=== PATIENT | male | born 1955 | race Caucasian/White ===

== ENCOUNTER 2021-08-06 19:39 | Emergency (ER) | payer OTHER ==
[2021-08-06 22:39] LABS: Urine Blood 2+ (Negative); Urine Glucose Trace (Negative); Urine Protein 2+ (Negative)
[2021-08-06 22:46] LABS: Absolute Lymphocytes (CBC) 0.6 K/uL (0.7-4.9); Lymphocytes % 15.6 % (15.3-44.8); MPV 8.7 fL (7.6-11.3); RBC Red Blood Cell Count 3.67 M/uL (4.33-5.43)
[2021-08-06 23:04] LABS: Urine Bacteria >50 /HPF (NONE SEEN); Urine RBC <5 /HPF (NONE SEEN); Urine Urothelial Cells <5 /HPF (NONE SEEN)
[2021-08-06] MEDS ORDERED: NA CHLORIDE 0.9% 50 ML ONE (23:49)
[2021-08-06] MEDS ORDERED: CEFTRIAXONE 1000 MG/VIAL ONE (23:49)
[2021-08-07 01:05] LABS: Potassium 3.6 mmol/L (3.5-5.1)
--- NOTE | 2021-08-07 01:32 | EDPHYS ---
Physician Documentation [facility] Name: Herman Sun Age: 65 yrs Sex: Male : 1955 Arrival Date: 08/06/2021 Time: 19:41 Bed Treatment Private MD: ED Physician Wong Geller HPI: 08/06 21:01 This 65 yrs old Male presents to ER via Ambulatory with complaints of Urinary Problem, rn Cloudy Urine. 21:01 The patient presents with urinary symptoms, "cloudy urine". Onset: The symptoms/episode rn began/occurred today. Modifying factors: The symptoms are alleviated by nothing, the symptoms are aggravated by nothing. Associated signs and symptoms: Pertinent negatives: abdominal pain, dysuria, fever, hematuria, vomiting. Severity of symptoms: At their worst the symptoms were very mild, in the emergency department the symptoms are unchanged. The patient has not experienced similar symptoms in the past. The patient has not recently seen a physician. Patient came in today for cloudy urine, states "looks milky", has colon cancer s/p colectomy 3 years ago, still getting chemo, last dose 1.5 weeks ago. Is incontinent of urine since last year, uses pads, does not cath. Does not feel ill, denies fever/vomiting/chills/back pain.. Historical: - Allergies: 20:27 Marijuana/Cannabinoid; jb4 20:27 NKDA; jb4 - PMHx: 20:25 Colorectal cancer; Chronic Kidney disease; Cirrhosis of liver; Colostomy; DM; HTN; jb4 Hypothyroidism; kidney stones; - Immunization history:: Adult Immunizations up to date. - Social history:: Smoking status: Patient denies any tobacco usage or history of. - Family history:: not pertinent. ROS: 21:01 Constitutional: Negative for fever, chills, and weight loss, Eyes: Negative for injury, rn pain, redness, and discharge, Neck: Negative for injury, pain, and swelling, Cardiovascular: Negative for chest pain, palpitations, and edema, Respiratory: Negative for shortness of breath, cough, wheezing, and pleuritic chest pain, Abdomen/GI: Negative for abdominal pain, nausea, vomiting, diarrhea, and constipation, Back: Negative for injury and pain, : Negative for hematuria, + cloudy urine MS/Extremity: Negative for injury and deformity, Skin: Negative for injury, rash, and discoloration, Neuro: Negative for headache, weakness, numbness, tingling, and seizure. Exam: 21:01 Constitutional: This is a well developed, well nourished patient who is awake, alert, rn and in no acute distress. Head/Face: Normocephalic, atraumatic. Cardiovascular: Regular rate and rhythm. No pulse deficits. Respiratory: No increased work of breathing, no retractions or nasal flaring. Abdomen/GI: soft, non-tender Skin: Warm, dry MS/ Extremity: Pulses equal, no cyanosis. Neuro: Awake and alert, GCS 15 Vital Signs: 20:20 BP 153 / 57; Pulse 80; Resp 16; Temp 99.0(TE); Pulse Ox 97% on R/A; Weight 128.82 kg jb4 (R); Height 5 ft. 11 in. (180.34 cm) (R); Pain 05/29; 08/07 01:35 BP 136 / 75; Pulse 103; Resp 16; Pulse Ox 98% on R/A; jb4 08/06 20:20 Body Mass Index 39.61 (128.82 kg, 180.34 cm) jb4 MDM: 08/06 20:03 Patient medically screened. rn 08/07 01:30 Differential diagnosis: UTI, prostatitis, urethritis. Data reviewed: vital signs, rn nurses notes, lab test result(s), and as a result, I will discharge patient. Counseling: I had a detailed discussion with the patient and/or guardian regarding: the historical points, exam findings, and any diagnostic results supporting the discharge/admit diagnosis, lab results, the need for outpatient follow up, to return to the emergency department if symptoms worsen or persist or if there are any questions or concerns that arise at home. Response to treatment: the patient's symptoms have mildly improved after treatment, and as a result, I will discharge patient. Special discussion: I discussed with the patient/guardian in detail that at this point there is no indication for admission to the hospital. It is understood, however, that if the symptoms persist or worsen the patient needs to return immediately for re-evaluation. Based on the history and exam findings, there is no indication for further emergent testing or inpatient evaluation. I discussed with the patient/guardian the need to see the primary care provider for further evaluation of the symptoms. ED course: Pt with stable vitals, not septic, + UTI, had long conversation with patient and , will dc home with abx and return precautions, everyone in agreement.. 08/06 20:49 Order name: Urine Culture jb 08/06 20:49 Order name: Urine Microscopic Only; Complete Time: 23:11 jb4 08/06 20:50 Order name: CBC with Diff; Complete Time: 23:11 [facility] 08/06 20:50 Order name: Basic Metabolic Panel; Complete Time: 01:30 jb 08/06 20:50 Order name: Procalcitonin; Complete Time: 01:55 jb 08/06 22:39 Order name: Urine Dipstick-Ancillary; Complete Time: 22:43 EDPR 08/06 20:49 Order name: Urine Dipstick-Ancillary (obtain specimen); Complete Time: 22:46 [facility] 08/06 20:50 Order name: IV Start; Complete Time: 22:46 [facility] Administered Medications: 08/06 23:48 Drug: Rocephin (cefTRIAXone) 1 grams Route: IV; Rate: calculated rate; Site: left vc1 antecubital; Disposition Summary: 08/07/21 01:32 Discharge Ordered Location: Home rn Problem: new rn Symptoms: have improved rn Condition: Stable rn Diagnosis - UTI/ Urinary tract infection, site not specified rn Followup: rn - With: Private Physician - When: 2 - 3 days - Reason: Recheck today's complaints, Re-evaluation by your physician Discharge Instructions: - Discharge Summary Sheet rn - Urinary Tract Infection, Adult rn Forms: - Medication Reconciliation Form rn - Thank You Letter rn - Antibiotic pattern changer - Prescription Opioid Use rn Prescriptions: - cefpodoxime 100 mg Oral Tablet - take 2 tablets by ORAL route every 12 hours for 10 days take with food; 40 rn tablet; Refills: 0, Product Selection Permitted Signatures: Dispatcher [employer] EDWong Shah MD MD rn Bryson, James, RN RN jb4 Lora Hastings RN RN vc1 Corrections: (The following items were deleted from the chart) 20:27 20:25 Allergies: No Known Allergies; [facility]
--- NOTE | 2021-08-07 01:32 | ER ---
Nurse's Notes [facility] Name: Herman Sun Age: 65 yrs Sex: Male : 1955 Arrival Date: 08/06/2021 Time: 19:41 Bed Treatment Private MD: Diagnosis: UTI/ Urinary tract infection, site not specified Presentation: 08/06 20:20 Chief complaint: Patient states: I think he may have a UTI. He is having cloudy jb4 urination. I helped change him, and noticed that it was milky, and he has been incontinent. Coronavirus screen: At this time, the client does not indicate any symptoms associated with coronavirus-19. Ebola Screen: No symptoms or risks identified at this time. Initial Sepsis Screen: Does the patient meet any 2 criteria? No. Patient's initial sepsis screen is negative. Does the patient have a suspected source of infection? No. Patient's initial sepsis screen is negative. Risk Assessment: Do you want to hurt yourself or someone else? Patient reports no desire to harm self or others. Onset of symptoms was August 06, 2021. Transition of care: patient was not received from another setting of care. 20:20 Method Of Arrival: Ambulatory jb4 20:20 Acuity: SANJANA 3 jb4 Historical: - Allergies: 20:27 Marijuana/Cannabinoid; jb4 20:27 NKDA; jb4 - PMHx: 20:25 Colorectal cancer; Chronic Kidney disease; Cirrhosis of liver; Colostomy; DM; HTN; jb4 Hypothyroidism; kidney stones; - Immunization history:: Adult Immunizations up to date. - Social history:: Smoking status: Patient denies any tobacco usage or history of. - Family history:: not pertinent. Screenin:30 Abuse screen: Denies threats or abuse. Nutritional screening: No deficits noted. jb4 Tuberculosis screening: No symptoms or risk factors identified. Fall Risk None identified. Assessment: 21:30 General: Appears in no apparent distress. comfortable, Behavior is calm, cooperative. jb4 Pain: Denies pain. Neuro: Level of Consciousness is awake, alert, obeys commands, Oriented to person, place, time, situation. Cardiovascular: Cardiovascular: Patient's skin is warm and dry. Respiratory: Airway is patent Respiratory effort is even, unlabored, Respiratory pattern is regular, symmetrical. : Urine is cloudy. Derm: Skin is intact, Skin is pink, warm \T\ dry. 23:00 Reassessment: Patient appears in no apparent distress at this time. Patient and/or jb4 family updated on plan of care and expected duration. Pain level reassessed. Patient is alert, oriented x 3, equal unlabored respirations, skin warm/dry/pink. 08/07 01:15 Reassessment: Patient appears in no apparent distress at this time. Patient and/or jb4 family updated on plan of care and expected duration. Pain level reassessed. Patient is alert, oriented x 3, equal unlabored respirations, skin warm/dry/pink. Vital Signs: 08/06 20:20 BP 153 / 57; Pulse 80; Resp 16; Temp 99.0(TE); Pulse Ox 97% on R/A; Weight 128.82 kg jb4 (R); Height 5 ft. 11 in. (180.34 cm) (R); Pain 3/10; 08/07 01:35 BP 136 / 75; Pulse 103; Resp 16; Pulse Ox 98% on R/A; jb4 08/06 20:20 Body Mass Index 39.61 (128.82 kg, 180.34 cm) jb4 ED Course: 08/06 19:41 Patient arrived in ED. as 20:03 Wong Geller MD is Attending Physician. rn 20:25 Triage completed. jb4 20:27 Arm band placed on right wrist. jb4 21:30 Patient has correct armband on for positive identification. Bed in low position. Call jb4 light in reach. Side rails up X 1. Client placed on continuous cardiac and pulse oximetry monitoring. NIBP monitoring applied. 08/07 02:00 No provider procedures requiring assistance completed. IV discontinued, intact, jb4 bleeding controlled, No redness/swelling at site. Pressure dressing applied. Administered Medications: 08/06 23:48 Drug: Rocephin (cefTRIAXone) 1 grams Route: IV; Rate: calculated rate; Site: left vc1 antecubital; Medication: 21:30 VIS not applicable for this client. jb4 Outcome: 08/07 01:32 Discharge ordered by . rn 02:00 Discharged to home ambulatory, with family. jb4 02:00 Condition: stable 02:00 Discharge instructions given to patient, Instructed on discharge instructions, follow up and referral plans. medication usage, Demonstrated understanding of instructions, follow-up care, medications, Prescriptions given X 1. 02:01 Patient left the ED. jb4 Signatures: Dary Muhammad Roman, MD MD rn Bryson, James, RN RN jb4 Lora Hastings RN RN vc1 Corrections: (The following items were deleted from the chart) 08/06 20:27 20:25 Allergies: No Known Allergies; jb4 jb4
[2021-08-07 02:08] VITALS: TEMP 99
[2021-08-07 02:10] VITALS: BP 136/75; O2SAT 98
== END 2021-08-07 02:01 | disposition home or self-care (01) ==
LOC: ER 19:39
DX: N39.0 Urinary tract infection, site not specified (principal); E11.22 Type 2 diabetes mellitus with diabetic chronic kidney disease; I12.9 Hypertensive chronic kidney disease with stage 1 through stage 4 chronic kidney disease, or unspecified chronic kidney disease; N18.9 Chronic kidney disease, unspecified; Z88.8 Allergy status to other drugs, medicaments and biological substances; Z85.038 Personal history of other malignant neoplasm of large intestine; Z85.048 Personal history of other malignant neoplasm of rectum, rectosigmoid junction, and anus
CPT/HCPCS: 36415; 80048; 81003; 81015; 84145; 85025; 87077; 87086; 87088; 87186; 96374; 99283

== ENCOUNTER 2021-10-31 09:17 | Emergency (ER) | payer OTHER ==
[2021-10-31] MEDS ORDERED: Magnesium Sulfate 2gm IVPB 2 G/50 ML BAG IV ONE ×2 (10:06→14:35)
[2021-10-31 11:11] LABS: Albumin 2.7 g/dL (3.4-5.0); Bilirubin Total 1.1 mg/dL (0.2-1.0); Potassium 5.2 mmol/L (3.5-5.1); Protein, Total 6.1 g/dL (6.4-8.2)
[2021-10-31 11:49] LABS: Urine Blood Trace-lysed (Negative); Urine Glucose Negative (Negative); Urine Protein Negative (Negative)
--- NOTE | 2021-10-31 15:30 | EDPHYS ---
Physician Documentation [facility] Name: Herman Sun Age: 65 yrs Sex: Male : 1955 Arrival Date: 10/31/2021 Time: 09:20 Bed 7 Private MD: ED Physician Dat Hurst HPI: 10/31 09:53 This 65 yrs old Male presents to ER via Ambulatory with complaints of Abnormal Lab jmm Results. 09:53 Is a 65-year-old male with history of chronic kidney disease, liver cirrhosis, jmm colorectal cancer the presents emerged department with complaints of fatigue and abnormal magnesium level. Patient does take furosemide twice a day. states the patient is needed IV infusions of magnesium in the past. Patient denies chest pain. Patient denies palpitations. Historical: - Allergies: 09:29 NKDA; jl7 09:30 Marijuana/Cannabinoid; jl7 - Home Meds: 09:29 Chemo [Active]; jl7 09:30 tamsulosin 0.4 mg oral cap 1 cap once daily [Active]; Protonix 40 mg Oral TbEC 1 tab jl7 once daily [Active]; Glipizide Oral [Active]; levothyroxine oral [Active]; Allopurinol Oral [Active]; Lasix Oral [Active]; amiloride 5 mg oral tab [Active]; morphine 30 mg Oral TbER [Active]; gabapentin 300 mg oral cap [Active]; Hydroxyzine Oral [Active]; lactulose Oral [Active]; Myrbetriq oral [Active]; - PMHx: 09:29 chronic kidney disease; cirrhosis of liver; colorectal cancer; colostomy; DM; HTN; jl7 Hypothyroidism; Kidney stones; - Immunization history:: Client reports receiving the 2nd dose of the Covid vaccine. - Social history:: Smoking status: Patient reports the use of cigarette tobacco products, cigars. ROS: 09:53 Cardiovascular: Negative for chest pain, palpitations, and edema, Respiratory: Negative jmm for shortness of breath, cough, wheezing, and pleuritic chest pain. 09:53 Constitutional: Positive for fatigue. 09:53 All other systems are negative. Exam: 09:53 Constitutional: This is a well developed, well nourished patient who is awake, alert, jmm and in no acute distress. Head/Face: atraumatic. Eyes: EOMI, no conjunctival erythema appreciated ENT: Moist Mucus Membranes Neck: Trachea midline, Supple Chest/axilla: Normal chest wall appearance and motion. Cardiovascular: Regular rate and rhythm. No edema appreciated Respiratory: Normal respirations, no respiratory distress appreciated Abdomen/GI: Non distended Back: Normal ROM Skin: General appearance color normal MS/ Extremity: Moves all extremities, no obvious deformities appreciated, no edema noted to the lower extremities Neuro: Awake and alert Psych: Behavior is normal, Mood is normal, Patient is cooperative and pleasant 18:11 ECG was reviewed by the Attending Physician. [facility] Vital Signs: 09:28 BP 131 / 54; Pulse 83; Resp 17; Temp 98.4; Pulse Ox 96% on R/A; Weight 124.74 kg; 7 Height 5 ft. 11 in. (180.34 cm); Pain 5/10; 09:40 BP 112 / 62; Pulse 80; Resp 15; Pulse Ox 96% on R/A; vg1 10:30 BP 115 / 66; Pulse 72; Resp 12; Pulse Ox 97% on R/A; vg1 11:30 BP 123 / 59; Pulse 72; Resp 13; Pulse Ox 97% on R/A; vg1 12:59 BP 140 / 56; Pulse 76; Resp 16; Pulse Ox 99% on R/A; Pain 0/10; bm7 14:01 BP 130 / 58; Pulse 76; Resp 16; Pulse Ox 99% on R/A; bm7 14:30 BP 120 / 59; Pulse 72; Resp 16; Pulse Ox 100% on R/A; bm7 15:28 BP 117 / 56; Pulse 82; Resp 16; Pulse Ox 100% on R/A; bm7 09:28 Body Mass Index 38.35 (124.74 kg, 180.34 cm) [facility] MDM: 09:53 Patient medically screened. [facility] 15:29 Data reviewed: vital signs, nurses notes. Counseling: I had a detailed discussion with [facility] the patient and/or guardian regarding: the historical points, exam findings, and any diagnostic results supporting the discharge/admit diagnosis, the need for outpatient follow up, to return to the emergency department if symptoms worsen or persist or if there are any questions or concerns that arise at home. 10/31 09:53 Order name: [facility]; Complete Time: 11:23 [facility] 10/31 11:24 Order name: Magnesium; Complete Time: 11:44 [facility] 10/31 11:49 Order name: Urine Dipstick-Ancillary; Complete Time: 11:55 [facility] 10/31 12:19 Order name: Magnesium; Complete Time: 14:07 vg1 10/31 09:53 Order name: Saline Lock; Complete Time: 10:25 [facility] 10/31 10:03 Order name: EKG - Nurse/Tech; Complete Time: 10:40 [facility] 10/31 10:40 Order name: Labs - recollect needed: recollect green top/ hemolyzed; Complete Time: eb 10:45 10/31 11:24 Order name: Urine Dipstick-Ancillary (obtain specimen); Complete Time: 11:51 [facility] EC:11 Rate is 71 beats/min. Rhythm is regular. QT interval is prolonged. No ST changes noted. [facility] Reviewed by me. Administered Medications: 10:20 Drug: Magnesium Sulfate 2 grams Route: IVPB; Infused Over: 2 hrs; Site: left wrist; vg1 12:17 Follow up: IV Status: Completed infusion; IV Intake: 50ml vg1 14:30 Drug: Magnesium Sulfate 2 grams Route: IVPB; Infused Over: 2 hrs; Site: left hand; bm7 15:28 Follow up: IV Status: Completed infusion bm7 Disposition: 16:45 Attestation: The patient's history, exam findings, diagnostics, and a summary of any [facility] interventions or procedures was reviewed in detail with Giovanni SÁNCHEZ. Disposition Summary: 10/31/21 15:30 Discharge Ordered Location: Home [facility] Condition: Stable [facility] Diagnosis - Hypomagnesemia [facility] Followup: [facility] - With: Private Physician - When: 2 - 3 days - Reason: Recheck today's complaints, Continuance of care, Re-evaluation by your physician Discharge Instructions: - Discharge Summary Sheet [facility] - Hypomagnesemia [facility] Forms: - Medication Reconciliation Form [facility] - Thank You Letter [facility] - Antibiotic Education [facility] - Prescription Opioid Use [facility] Prescriptions: - Macrobid 100 mg Oral Capsule - take 1 capsule by ORAL route every 12 hours for 7 days; 14 capsule; Refills: 0, jmm Product Selection Permitted Signatures: Dispatcher [employer] Giovanni Burrows PA PA jmm Leal, Jahala RN RN jl7 Irina Srinivasan Victoria, DEV RN vg1 Anu Chen, RN RN bm7 Dat Hurst MD MD [id number]
--- NOTE | 2021-10-31 15:30 | ER ---
Nurse's Notes [facility] Name: Herman Sun Age: 65 yrs Sex: Male : 1955 Arrival Date: 10/31/2021 Time: 09:20 Bed 7 Private MD: Diagnosis: Hypomagnesemia Presentation: 10/31 09:28 Chief complaint: Patient states: Labs drawn on Wednesday, reported Mag. level of 0.7. jl Coronavirus screen: At this time, the client does not indicate any symptoms associated with coronavirus-19. Ebola Screen: No symptoms or risks identified at this time. Initial Sepsis Screen: Does the patient meet any 2 criteria? No. Patient's initial sepsis screen is negative. Does the patient have a suspected source of infection? No. Patient's initial sepsis screen is negative. Risk Assessment: Do you want to hurt yourself or someone else? Patient reports no desire to harm self or others. Onset of symptoms is unknown. 09:28 Method Of Arrival: Ambulatory [facility] 09:28 Acuity: SANJANA 3 jl7 Triage Assessment: 09:29 General: Appears in no apparent distress. uncomfortable, Behavior is calm, cooperative, jl7 appropriate for age. Pain: Complains of pain in back/sacral Pain currently is 5 out of 10 on a pain scale. Historical: - Allergies: : NKDA; jl 09:30 Marijuana/Cannabinoid; jl7 - Home Meds: 09: Chemo [Active]; jl 09:30 tamsulosin 0.4 mg oral cap 1 cap once daily [Active]; Protonix 40 mg Oral TbEC 1 tab jl7 once daily [Active]; Glipizide Oral [Active]; levothyroxine oral [Active]; Allopurinol Oral [Active]; Lasix Oral [Active]; amiloride 5 mg oral tab [Active]; morphine 30 mg Oral TbER [Active]; gabapentin 300 mg oral cap [Active]; Hydroxyzine Oral [Active]; lactulose Oral [Active]; Myrbetriq oral [Active]; - PMHx: 09:29 chronic kidney disease; cirrhosis of liver; colorectal cancer; colostomy; DM; HTN; jl7 Hypothyroidism; Kidney stones; - Immunization history:: Client reports receiving the 2nd dose of the Covid vaccine. - Social history:: Smoking status: Patient reports the use of cigarette tobacco products, cigars. Screenin:40 Abuse screen: Denies threats or abuse. Nutritional screening: No deficits noted. vg1 Tuberculosis screening: No symptoms or risk factors identified. Fall Risk No fall in past 12 months (0 pts). No secondary diagnosis (0 pts). IV access (20 points). Ambulatory Aid- None/Bed Rest/Nurse Assist (0 pts). Gait- Normal/Bed Rest/Wheelchair (0 pts) Mental Status- Oriented to own ability (0 pts). Total Webb Fall Scale indicates No Risk (0-24 pts). Assessment: 09:40 General: Appears in no apparent distress. uncomfortable, Behavior is calm, cooperative. vg1 Pain: Complains of pain in coccyx and gluteal cleft Pain currently is 5 out of 10 on a pain scale. Quality of pain is described as pressure, tender, Is chronic. Neuro: Level of Consciousness is awake, alert, obeys commands, Oriented to person, place, time, situation. Cardiovascular: Patient's skin is warm and dry. Chest pain is denied. Respiratory: Airway is patent Respiratory effort is even, unlabored, Denies cough, shortness of breath. GI: No signs and/or symptoms were reported involving the gastrointestinal system. Abdomen is round non-distended, obese, Colostomy site is clean and dry. is intact. : No signs and/or symptoms were reported regarding the genitourinary system. EENT: No signs and/or symptoms were reported regarding the EENT system. Derm: Skin is pink, warm \T\ dry. Musculoskeletal: Circulation, motion, and sensation intact. 10:45 Reassessment: Patient appears in no apparent distress at this time. No changes from vg1 previously documented assessment. Patient and/or family updated on plan of care and expected duration. Pain level reassessed. Patient is alert, oriented x 3, equal unlabored respirations, skin warm/dry/pink. 11:45 Reassessment: Patient appears in no apparent distress at this time. No changes from vg1 previously documented assessment. Patient and/or family updated on plan of care and expected duration. Pain level reassessed. Patient is alert, oriented x 3, equal unlabored respirations, skin warm/dry/pink. 13:35 Reassessment: Patient and/or family updated on plan of care and expected duration. Pain bm7 level reassessed. Patient is alert, oriented x 3, equal unlabored respirations, skin warm/dry/pink. Vital Signs: 09:28 BP 131 / 54; Pulse 83; Resp 17; Temp 98.4; Pulse Ox 96% on R/A; Weight 124.74 kg; jl7 Height 5 ft. 11 in. (180.34 cm); Pain 5/10; 09:40 BP 112 / 62; Pulse 80; Resp 15; Pulse Ox 96% on R/A; vg1 10:30 BP 115 / 66; Pulse 72; Resp 12; Pulse Ox 97% on R/A; vg1 11:30 BP 123 / 59; Pulse 72; Resp 13; Pulse Ox 97% on R/A; vg1 12:59 BP 140 / 56; Pulse 76; Resp 16; Pulse Ox 99% on R/A; Pain 0/10; bm7 14:01 BP 130 / 58; Pulse 76; Resp 16; Pulse Ox 99% on R/A; bm7 14:30 BP 120 / 59; Pulse 72; Resp 16; Pulse Ox 100% on R/A; bm7 15:28 BP 117 / 56; Pulse 82; Resp 16; Pulse Ox 100% on R/A; bm7 09:28 Body Mass Index 38.35 (124.74 kg, 180.34 cm) jl7 ED Course: 09:20 Patient arrived in ED. rg4 09:25 Giovanni Mansfield PA is PHCP. jmm 09:25 Dat Hurst MD is Attending Physician. jmm 09:29 Triage completed. jl7 09:29 Arm band placed on right wrist. jl7 09:37 Mela Colon, RN is Primary Nurse. vg1 09:40 Patient has correct armband on for positive identification. Bed in low position. Side vg1 rails up X 1. Adult w/ patient. 09:40 Client placed on continuous cardiac and pulse oximetry monitoring. NIBP monitoring vg1 applied. 10:12 Initial lab(s) drawn, by me, sent to lab. Inserted saline lock: 22 gauge in left wrist, vg1 using aseptic technique. Blood collected. 12:59 Repositioned patient. bm7 12:59 Lab(s) recollected, by me, sent to lab. bm7 15:46 No provider procedures requiring assistance completed. IV discontinued, intact, bm7 bleeding controlled, No redness/swelling at site. Pressure dressing applied. Administered Medications: 10:20 Drug: Magnesium Sulfate 2 grams Route: IVPB; Infused Over: 2 hrs; Site: left wrist; vg1 12:17 Follow up: IV Status: Completed infusion; IV Intake: 50ml vg1 14:30 Drug: Magnesium Sulfate 2 grams Route: IVPB; Infused Over: 2 hrs; Site: left hand; bm7 15:28 Follow up: IV Status: Completed infusion bm7 Medication: 09:40 VIS not applicable for this client. vg1 Intake: 12:17 IV: 50ml; Total: 50ml. vg1 Outcome: 15:30 Discharge ordered by . shalonda 15:46 Discharged to home ambulatory, with family. 7 15:46 Condition: improved 15:46 Discharge instructions given to patient, family, Instructed on discharge instructions, follow up and referral plans. Demonstrated understanding of instructions, follow-up care. 15:56 Patient left the ED. 7 Signatures: Giovanni Mansfield PA PA jmm Garcia, Rubi rg4 Jeremy Heredia RN RN jl7 Mela Cloon, RN RN vg1 Anu Chen, RN RN bm7
[2021-10-31 16:24] VITALS: TEMP 98.4
[2021-10-31 17:00] VITALS: O2SAT 100
[2021-10-31 17:02] VITALS: BP 117/56
== END 2021-10-31 15:56 | disposition home or self-care (01) ==
LOC: ER 09:17
DX: E83.42 Hypomagnesemia (principal); C18.9 Malignant neoplasm of colon, unspecified; E11.22 Type 2 diabetes mellitus with diabetic chronic kidney disease; I12.9 Hypertensive chronic kidney disease with stage 1 through stage 4 chronic kidney disease, or unspecified chronic kidney disease; N18.9 Chronic kidney disease, unspecified; F17.290 Nicotine dependence, other tobacco product, uncomplicated; Z91.048 Other nonmedicinal substance allergy status
CPT/HCPCS: 36415; 83735 ×2; 81003; 80053; 99284; J3475 ×2; 93005

== ENCOUNTER 2021-11-11 09:21 | Emergency (ER) | payer OTHER ==
[2021-11-11 10:21] LABS: Absolute Lymphocytes (CBC) 0.4 K/uL (0.7-4.9); Hematocrit 35.9 % (39.6-49.0); Lymphocytes % 8.5 % (15.3-44.8); MCV 97.8 fL (80-100); MPV 9.5 fL (7.6-11.3); RBC Red Blood Cell Count 3.67 M/uL (4.33-5.43)
[2021-11-11 10:28] LABS: SARS-CoV-2 Antigen Rapid Res Negative (Negative)
[2021-11-11 10:32] LABS: Albumin 2.7 g/dL (3.4-5.0); Bilirubin Total 0.9 mg/dL (0.2-1.0); Potassium 3.9 mmol/L (3.5-5.1); Protein, Total 6.2 g/dL (6.4-8.2)
[2021-11-11 10:34] LABS: Magnesium 0.9 mg/dL (1.8-2.4)
[2021-11-11] MEDS ORDERED: Magnesium Sulfate 2gm IVPB 2 G/50 ML BAG IV ONE ×2 (10:47→14:19)
--- NOTE | 2021-11-11 10:56 | ER ---
Nurse's Notes [facility] Name: Herman Sun Age: 65 yrs Sex: Male : 1955 Arrival Date: 11/11/2021 Time: 09:27 Bed 3 Private MD: Diagnosis: Hypomagnesemia;Weakness Presentation: 11/11 09:36 Chief complaint: Patient states: chemo every 14 days, pt is needing magnesium drip 5 every week. Pt is extremely fatigued per . ambulates well independently, speech is clear. Pt was here 2 weeks ado dx with UTI, pt self caths - urine is still very cloudy even after finishing abx. Coronavirus screen: Vaccine status: Patient reports receiving the 2nd dose of the covid vaccine. Client denies travel out of the [place] in the last 14 days. Ebola Screen: Patient negative for fever greater than or equal to 101.5 degrees Fahrenheit, and additional compatible Ebola Virus Disease symptoms Patient denies exposure to infectious person. Patient denies travel to an Ebola-affected area in the 21 days before illness onset. No acute neurological deficit is noted. Pre-hospital glucose is not applicable to this patient. Initial Sepsis Screen: Does the patient meet any 2 criteria? No. Patient's initial sepsis screen is negative. Does the patient have a suspected source of infection? No. Patient's initial sepsis screen is negative. Risk Assessment: Do you want to hurt yourself or someone else? Patient reports no desire to harm self or others. Onset of symptoms was October 2021. 09:36 Method Of Arrival: Ambulatory [facility] 09:36 Acuity: SANJANA 2 [facility] Triage Assessment: 09:41 General: Appears in no apparent distress. uncomfortable, obese, well groomed, Behavior [facility] is calm, cooperative, appropriate for age. Pain: Complains of pain in mouth. Neuro: Reports weakness weakness due to low magnesium from chemo therapy treatment . Historical: - Allergies: 09:40 Marijuana/Cannabinoid; 5 09:40 NKDA; [facility] - Home Meds: 09:40 tamsulosin 0.4 mg Oral cap 1 cap once daily [Active]; levothyroxine oral [Active]; 5 Protonix 40 mg Oral TbEC 1 tab once daily [Active]; Allopurinol Oral [Active]; amiloride 5 mg Oral tab [Active]; chemo [Active]; gabapentin 300 mg Oral cap [Active]; Glipizide Oral [Active]; Hydroxyzine Oral [Active]; Lactulose Oral [Active]; Lasix Oral [Active]; morphine 30 mg Oral TbER [Active]; Myrbetriq Oral [Active]; - PMHx: 09:40 chronic kidney disease; cirrhosis of liver; colorectal cancer; colostomy; DM; HTN; jh5 Hypothyroidism; Kidney stones; - Immunization history:: Adult Immunizations up to date. - Social history:: Smoking status: Patient uses daily cigar. Screenin:09 Abuse screen: Denies threats or abuse. Denies injuries from another. Nutritional ph screening: No deficits noted. Tuberculosis screening: No symptoms or risk factors identified. Fall Risk None identified. Assessment: 10:34 Reassessment: Dr. Arzate notified of critical magnesium, 0.9. ss 10:50 Reassessment: Patient appears in no apparent distress at this time. No changes from tw2 previously documented assessment. Patient and/or family updated on plan of care and expected duration. Pain level reassessed. Patient is alert, oriented x 3, equal unlabored respirations, skin warm/dry/pink. 11:35 Reassessment: Patient appears in no apparent distress at this time. No changes from tw2 previously documented assessment. Patient and/or family updated on plan of care and expected duration. Pain level reassessed. Patient is alert, oriented x 3, equal unlabored respirations, skin warm/dry/pink. 12:27 Reassessment: Patient appears in no apparent distress at this time. No changes from tw2 previously documented assessment. Patient and/or family updated on plan of care and expected duration. Pain level reassessed. Patient is alert, oriented x 3, equal unlabored respirations, skin warm/dry/pink. 14:06 Reassessment: Patient appears in no apparent distress at this time. No changes from tw2 previously documented assessment. Patient and/or family updated on plan of care and expected duration. Pain level reassessed. Patient is alert, oriented x 3, equal unlabored respirations, skin warm/dry/pink. 14:06 Reassessment: Patient appears in no apparent distress at this time. No changes from tw2 previously documented assessment. Patient and/or family updated on plan of care and expected duration. Pain level reassessed. Patient is alert, oriented x 3, equal unlabored respirations, skin warm/dry/pink. 15:19 Reassessment: Patient appears in no apparent distress at this time. No changes from tw2 previously documented assessment. Patient and/or family updated on plan of care and expected duration. Pain level reassessed. Patient is alert, oriented x 3, equal unlabored respirations, skin warm/dry/pink. 16:47 Reassessment: Patient appears in no apparent distress at this time. Patient and/or ph family updated on plan of care and expected duration. Pain level reassessed. Patient is alert, oriented x 3, equal unlabored respirations, skin warm/dry/pink. Pt d/c homme. Vital Signs: 09:36 BP 124 / 63; Pulse 84; Resp 18; Temp 98.7; Pulse Ox 96% ; Weight 123.38 kg; Height 5 5 ft. 11 in. (180.34 cm); Pain 8/10; 10:48 BP 126 / 67; Pulse 75; Resp 17; Pulse Ox 93% on R/A; tw2 11:35 BP 128 / 42; Pulse 84; Resp 17; Pulse Ox 99% on R/A; tw2 12:27 BP 128 / 64; Pulse 75; Resp 15; Pulse Ox 96% on R/A; tw2 14:06 BP 126 / 65; Pulse 76; Resp 14; Pulse Ox 95% on R/A; tw2 15:19 BP 119 / 61; Pulse 81; Resp 14; Pulse Ox 97% on R/A; tw2 16:48 BP 117 / 68; Pulse 78; Resp 18; Temp 98.2; Pulse Ox 98% on R/A; ph 09:36 Body Mass Index 37.94 (123.38 kg, 180.34 cm) 5 ED Course: 09:27 Patient arrived in ED. rg4 09:34 Mikhail Arzate MD is Attending Physician. kdr 09:40 Triage completed. jh5 09:52 Peyton Jarrell, DEV is Primary Nurse. ph 09:59 Arm band placed on. tw2 10:04 Inserted saline lock: 20 gauge in left hand, using aseptic technique. ph 10:08 SARS RAPID Sent. kc6 10:08 CBC with Diff Sent. kc6 10:08 Magnesium Sent. kc6 10:08 Comprehensive Metabolic Panel Sent. kc6 10:09 Patient has correct armband on for positive identification. Bed in low position. Call ph light in reach. Side rails up X 1. desk monitor on. Pulse ox on. NIBP on. Door closed. Visitors limited. Warm blanket given. 10:55 Dalton Grande DO is Referral Physician. kdr 13:00 Magnesium Sent. tw2 15:58 Awaiting: completion of IV fluids PRIOR to discharge. tw2 16:48 No provider procedures requiring assistance completed. IV discontinued, intact, ph bleeding controlled, No redness/swelling at site. Pressure dressing applied. Administered Medications: 10:48 Drug: Magnesium Sulfate 2 grams Route: IVPB; Infused Over: 2 hrs; Site: left hand; tw2 11:43 Follow up: Response: No adverse reaction; IV Status: Completed infusion; IV Intake: [id number] 14:10 Drug: Magnesium Sulfate 2 grams Route: IVPB; Infused Over: 2 hrs; Site: left hand; tw2 15:30 Follow up: IV Status: Completed infusion; IV Intake: 100ml ; per Dr. Arzate can run tw2 over 1 hr 15:50 Drug: Rocephin - (cefTRIAXone) 1 grams Route: IVPB; Infused Over: 30 mins; Site: left ph forearm; 16:20 Follow up: Response: No adverse reaction; IV Status: Completed infusion ph Medication: 10:09 VIS not applicable for this client. ph Intake: 11:43 IV: 50ml; Total: 50ml. tw2 15:30 IV: 100ml; Total: 150ml. tw2 Outcome: 10:56 Discharge ordered by . kdr 15:47 Discharge ordered by . kdr 16:48 Discharged to home ambulatory, with significant other. ph 16:48 Condition: good 16:48 Discharge instructions given to patient, significant other, Instructed on discharge instructions, follow up and referral plans. medication usage, Demonstrated understanding of instructions, follow-up care, medications, Prescriptions given X 1. 16:48 Patient left the ED. ph Signatures: Mikhail Arzate MD MD kdr Griselda Huertas RN RN ss Hall, Patricia, RN RN ph Mila Basilio RN RN 2 Luisa Colon 4 Kellie Pace RN RN 5 Zohreh Yoo kc6 Corrections: (The following items were deleted from the chart) 09:42 09:36 Chief complaint: Patient states: chemo every 14 days, pt is needing magnesium jh5 drip every week. Pt is extremely fatigued per . ambulates well independently, has coffee cup with him jh5 12:28 12:27 BP 128 / 64; Pulse 75bpm; Resp 11bpm; Pulse Ox 96% RA; tw2 tw2
--- NOTE | 2021-11-11 10:57 | EDPHYS ---
Physician Documentation [facility] Name: Herman Sun Age: 65 yrs Sex: Male : 1955 Arrival Date: 11/11/2021 Time: 09:27 Bed 3 Private MD: ED Physician Mikhail Arzate HPI: 11/11 11:09 This 65 yrs old Male presents to ER via Ambulatory with complaints of Weakness. kdr 11:09 The patient presents to the emergency department with weakness of the entire body, kdr generalized weakness. Onset: The symptoms/episode began/occurred gradually, 1 week(s) ago. Context: occurred at home, occurred while the patient was at rest. Associated signs and symptoms: The patient has no apparent associated signs or symptoms. Severity of symptoms: At their worst the symptoms were mild moderate just prior to arrival, in the emergency department the symptoms are unchanged. Patient's baseline: Neuro: alert and fully oriented, Motor: no deficits, Ambulation: walks without assistance, Speech: normal, The patient has a previous history of hypomagnesemia secondary to his radiation treatments for colon cancer. Current symptoms: Generally weak, diffusely. The patient has experienced similar episodes in the past, multiple times. The patient has not recently seen a physician. Historical: - Allergies: 09:40 Marijuana/Cannabinoid; 5 09:40 NKDA; jh5 - Home Meds: 09:40 tamsulosin 0.4 mg Oral cap 1 cap once daily [Active]; levothyroxine oral [Active]; jh5 Protonix 40 mg Oral TbEC 1 tab once daily [Active]; Allopurinol Oral [Active]; amiloride 5 mg Oral tab [Active]; chemo [Active]; gabapentin 300 mg Oral cap [Active]; Glipizide Oral [Active]; Hydroxyzine Oral [Active]; Lactulose Oral [Active]; Lasix Oral [Active]; morphine 30 mg Oral TbER [Active]; Myrbetriq Oral [Active]; - PMHx: 09:40 chronic kidney disease; cirrhosis of liver; colorectal cancer; colostomy; DM; HTN; jh5 Hypothyroidism; Kidney stones; - Immunization history:: Adult Immunizations up to date. - Social history:: Smoking status: Patient uses daily cigar. ROS: 11:09 Constitutional: Negative for fever, chills, and weight loss, Eyes: Negative for injury, kdr pain, redness, and discharge, ENT: Negative for injury, pain, and discharge, Neck: Negative for injury, pain, and swelling, Cardiovascular: Negative for chest pain, palpitations, and edema, Respiratory: Negative for shortness of breath, cough, wheezing, and pleuritic chest pain, Abdomen/GI: Negative for abdominal pain, nausea, vomiting, diarrhea, and constipation, Back: Negative for injury and pain, : Negative for injury, bleeding, discharge, and swelling, MS/Extremity: Negative for injury and deformity, Skin: Negative for injury, rash, and discoloration, Psych: Negative for depression, anxiety, suicide ideation, homicidal ideation, and hallucinations, Allergy/Immunology: Negative for hives, rash, and allergies, Endocrine: Negative for neck swelling, polydipsia, polyuria, polyphagia, and marked weight changes, Hematologic/Lymphatic: Negative for swollen nodes, abnormal bleeding, and unusual bruising. 11:09 Neuro: Positive for gait disturbance, weakness, Negative for altered mental status, dizziness, gait disturbance, headache, loss of consciousness, seizure activity, speech changes, syncope, near syncope, tinnitus, tremor, visual changes. Exam: 11:09 Constitutional: This is a well developed, well nourished patient who is awake, alert, kdr and in no acute distress. Head/Face: Normocephalic, atraumatic. Eyes: Pupils equal round and reactive to light, extra-ocular motions intact. Lids and lashes normal. Conjunctiva and sclera are non-icteric and not injected. Cornea within normal limits. Periorbital areas with no swelling, redness, or edema. Neck: Trachea midline, no thyromegaly or masses palpated, and no cervical lymphadenopathy. Supple, full range of motion without nuchal rigidity, or vertebral point tenderness. No Meningismus. Chest/axilla: Normal chest wall appearance and motion. Nontender with no deformity. No lesions are appreciated. Cardiovascular: Regular rate and rhythm with a normal S1 and S2. No gallops, murmurs, or rubs. Normal PMI, no JVD. No pulse deficits. Respiratory: Lungs have equal breath sounds bilaterally, clear to auscultation and percussion. No rales, rhonchi or wheezes noted. No increased work of breathing, no retractions or nasal flaring. Abdomen/GI: Soft, non-tender, with normal bowel sounds. No distension or tympany. No guarding or rebound. No evidence of tenderness throughout. 11:09 Abdomen/GI: Inspection: obese The patient has a colostomy bag. Vital Signs: 09:36 BP 124 / 63; Pulse 84; Resp 18; Temp 98.7; Pulse Ox 96% ; Weight 123.38 kg; Height 5 jh5 ft. 11 in. (180.34 cm); Pain 8/10; 10:48 BP 126 / 67; Pulse 75; Resp 17; Pulse Ox 93% on R/A; tw2 11:35 BP 128 / 42; Pulse 84; Resp 17; Pulse Ox 99% on R/A; tw2 12:27 BP 128 / 64; Pulse 75; Resp 15; Pulse Ox 96% on R/A; tw2 14:06 BP 126 / 65; Pulse 76; Resp 14; Pulse Ox 95% on R/A; tw2 15:19 BP 119 / 61; Pulse 81; Resp 14; Pulse Ox 97% on R/A; tw2 16:48 BP 117 / 68; Pulse 78; Resp 18; Temp 98.2; Pulse Ox 98% on R/A; ph 09:36 Body Mass Index 37.94 (123.38 kg, 180.34 cm) 5 MDM: 10:56 Patient medically screened. kdr 11:09 Data reviewed: vital signs, nurses notes, lab test result(s), radiologic studies. kdr Counseling: I had a detailed discussion with the patient and/or guardian regarding: the historical points, exam findings, and any diagnostic results supporting the discharge/admit diagnosis, lab results, radiology results, the need for outpatient follow up. 15:46 ED course: Patient has continued to improve markedly with the interventions given. This kdr is a process that he has been through many times previously. He is responding well and should be dischargeable shortly. 11/11 09:50 Order name: Urine Culture kdr 11/11 09:50 Order name: Comprehensive Metabolic Panel; Complete Time: 10:42 kdr 11/11 09:50 Order name: Magnesium; Complete Time: 10:42 kdr 11/11 09:50 Order name: CBC with Diff; Complete Time: 10:42 kdr 11/11 09:54 Order name: SARS RAPID; Complete Time: 10:42 ph 11/11 11:32 Order name: Urine Dipstick-Ancillary; Complete Time: 15:42 EDMS 11/11 09:50 Order name: Urine Dipstick-Ancillary (obtain specimen); Complete Time: 11:34 kdr 11/11 12:36 Order name: Magnesium; Complete Time: 15:42 tw2 11/11 15:38 Order name: Magnesium; Complete Time: 16:22 ss Administered Medications: 10:48 Drug: Magnesium Sulfate 2 grams Route: IVPB; Infused Over: 2 hrs; Site: left hand; tw2 11:43 Follow up: Response: No adverse reaction; IV Status: Completed infusion; IV Intake: [id number] 14:10 Drug: Magnesium Sulfate 2 grams Route: IVPB; Infused Over: 2 hrs; Site: left hand; tw2 15:30 Follow up: IV Status: Completed infusion; IV Intake: 100ml ; per Dr. Arzate can run tw2 over 1 hr 15:50 Drug: Rocephin - (cefTRIAXone) 1 grams Route: IVPB; Infused Over: 30 mins; Site: left ph forearm; 16:20 Follow up: Response: No adverse reaction; IV Status: Completed infusion ph Disposition Summary: 11/11/21 15:47 Discharge Ordered Location: Home(11/11/21 15:47) kdr Problem: an acute exacerbation(11/11/21 15:47) kdr Symptoms: have improved(11/11/21 15:47) kdr Condition: Stable(11/11/21 15:47) kdr Diagnosis - Hypomagnesemia kdr - Weakness kdr Followup: kdr - With: Private Physician - When: 2 - 3 days - Reason: If symptoms return, Further diagnostic work-up, Recheck today's complaints, Continuance of care, Re-evaluation by your physician Discharge Instructions: - Discharge Summary Sheet kdr - Hypomagnesemia kdr - Weakness, [id number] kdr - Urinary Tract Infection, Adult, [id number] kdr Forms: - Medication Reconciliation Form kdr - Thank You Letter kdr Prescriptions: - Macrobid 100 mg Oral Capsule - take 1 capsule by ORAL route every 12 hours for 10 days; 20 capsule; Refills: kdr 0, Product Selection Permitted Signatures: Dispatcher [employer] Mikhail Preez MD MD kdr Peyton Jarrell RN RN ph Mila Basilio RN RN tw2 Kellie Pace, RN RN jh5 Corrections: (The following items were deleted from the chart) 10: 10:56 Home kdr kdr 10:56 an ongoing problem kdr kdr 10:56 are unchanged kdr kdr 10:56 Stable kdr kdr 10:56 Chest pain, unspecified kdr kdr : 10:56 Shortness of breath kdr kdr
[2021-11-11 11:32] LABS: Urine Blood Trace-intact (Negative); Urine Glucose Negative (Negative); Urine Protein Negative (Negative)
[2021-11-11] MEDS ORDERED: CEFTRIAXONE 1000 MG/VIAL ONE (15:54)
[2021-11-11] MEDS ORDERED: NA CHLORIDE 0.9% 100 ML ONE (15:54)
[2021-11-11 17:26] VITALS: BP 117/68; TEMP 98.2; O2SAT 98
== END 2021-11-11 16:48 | disposition home or self-care (01) ==
LOC: ER 09:21
DX: N39.0 Urinary tract infection, site not specified (principal); E83.42 Hypomagnesemia; E11.22 Type 2 diabetes mellitus with diabetic chronic kidney disease; I12.9 Hypertensive chronic kidney disease with stage 1 through stage 4 chronic kidney disease, or unspecified chronic kidney disease; N18.9 Chronic kidney disease, unspecified; Z85.038 Personal history of other malignant neoplasm of large intestine; Z85.048 Personal history of other malignant neoplasm of rectum, rectosigmoid junction, and anus; Z87.442 Personal history of urinary calculi; Z88.8 Allergy status to other drugs, medicaments and biological substances; Z20.822 Contact with and (suspected) exposure to COVID-19
CPT/HCPCS: 87088; 85025; 87086; 36415; 83735 ×3; 81003; 80053; 87811; J3475 ×2

== ENCOUNTER 2021-12-02 09:39 | Emergency (ER) | payer OTHER ==
[2021-12-02] MEDS ORDERED: Magnesium Sulfate 2gm IVPB 2 G/50 ML BAG IV ONE (13:03)
[2021-12-02 13:42] LABS: Potassium 3.9 mmol/L (3.5-5.1)
[2021-12-02 13:45] LABS: Magnesium 1.3 mg/dL (1.8-2.4)
[2021-12-02] MEDS ORDERED: CEFTRIAXONE 1000 MG/VIAL ONE (14:28)
--- NOTE | 2021-12-02 14:31 | EDPHYS ---
Physician Documentation [facility] Name: Herman Sun Age: 65 yrs Sex: Male : 1955 Arrival Date: 12/02/2021 Time: 09:41 Bed 27 Private MD: ED Physician Lenny Lima HPI: 12/02 10:43 This 65 yrs old Male presents to ER via Ambulatory with complaints of General Weakness. jmm 10:43 65-year-old male with a history of chronic kidney disease, cirrhosis of liver, jmm colorectal cancer presents the ED with complaints of fatigue, right ear pain. Patient is currently taking Augmentin for otitis media. Denies abdominal pain, shortness of breath, chest pain, cough. Family/ states patient normally has hypomagnesemia which he attributes to his weakness.. Historical: - Allergies: 10:27 Marijuana/Cannabinoid; jh5 10:27 NKDA; jh5 - Home Meds: 10:27 Magnesium Oxide Oral 2400 mg daily [Active]; tamsulosin 0.4 mg Oral cap 1 cap once jh5 daily [Active]; Protonix 40 mg Oral TbEC 1 tab once daily [Active]; Glipizide Oral [Active]; levothyroxine oral [Active]; Allopurinol Oral [Active]; amiloride 5 mg Oral tab [Active]; Lasix Oral [Active]; morphine 30 mg Oral TbER [Active]; gabapentin 300 mg Oral cap [Active]; Hydroxyzine Oral [Active]; Lactulose Oral [Active]; Myrbetriq Oral [Active]; Jemperli intravenous [Active]; chemo [Active]; - PMHx: 10:27 chronic kidney disease; cirrhosis of liver; colorectal cancer; colostomy; DM; HTN; jh5 Hypothyroidism; Kidney stones; recurrent uti; - Immunization history:: Client reports receiving the 2nd dose of the Covid vaccine. - Social history:: Smoking status: Patient reports the use of cigarette tobacco products, cigars. ROS: 10:43 Constitutional: Positive for fatigue. jmm 10:43 ENT: Positive for ear pain. 10:43 Respiratory: Positive for Negative for shortness of breath. 10:43 Abdomen/GI: Negative for abdominal pain, vomiting. 10:43 All other systems are negative. Exam: 10:43 Constitutional: This is a well developed, well nourished patient who is awake, alert, jmm and in no acute distress. Head/Face: atraumatic. 10:43 Chest/axilla: Normal chest wall appearance and motion. Cardiovascular: Regular rate and rhythm. No edema appreciated Respiratory: Normal respirations, no respiratory distress appreciated 10:43 Back: Normal ROM Skin: General appearance color normal MS/ Extremity: Moves all extremities, no obvious deformities appreciated, no edema noted to the lower extremities Neuro: Awake and alert Psych: Behavior is normal, Mood is normal, Patient is cooperative and pleasant 10:43 Eyes: Sclera: icterus, is present. 10:43 Abdomen/GI: Inspection: obese Palpation: soft, nontender, in all quadrants. 10:43 ENT: TM's: erythema, that is moderate, on the right. [facility] Vital Signs: 10:33 BP 125 / 70; Pulse 103; Resp 17; Temp 98.4; Pulse Ox 95% ; Weight 123.38 kg; Height 5 jl7 ft. 11 in. (180.34 cm); 13:50 BP 122 / 66; Pulse 81; Pulse Ox 99% on R/A; ap3 10:33 Body Mass Index 37.94 (123.38 kg, 180.34 cm) jl7 MDM: 11:53 Patient medically screened. [facility] 14:29 Data reviewed: vital signs, nurses notes. Counseling: I had a detailed discussion with [facility] the patient and/or guardian regarding: the historical points, exam findings, and any diagnostic results supporting the discharge/admit diagnosis, lab results, the need for outpatient follow up, to return to the emergency department if symptoms worsen or persist or if there are any questions or concerns that arise at home. ED course: States feeling much better after IV magnesium. Will switch antibiotic to cefdinir. Patient states he has been on Augmentin without relief of his right ear pain.. 12/02 11:25 Order name: Magnesium; Complete Time: 13:52 snw 12/02 12:35 Order name: Basic Metabolic Panel; Complete Time: 13:52 EDMS 12/02 10:43 Order name: Labs collected and sent; Complete Time: 12:15 snw 12/02 10:43 Order name: O2 Sat Monitoring; Complete Time: 12:44 snw Administered Medications: 13:11 Drug: Magnesium Sulfate 2 grams Route: IVPB; Infused Over: 2 hrs; Site: left [facility] antecubital; 14:17 Follow up: IV Status: Completed infusion ap3 14:30 Drug: Rocephin (cefTRIAXone) 1 grams Route: IV; Rate: calculated rate; Site: left [facility] ante[facility]ubital; Disposition Summary: 12/02/21 14:30 Discharge Ordered Location: Home [facility] Condition: Stable jm Diagnosis - Acute serous otitis media, right ear [facility] Followup: jmm - With: Private Physician - When: 2 - 3 days - Reason: Recheck today's complaints, Continuance of care, Re-evaluation by your physician Discharge Instructions: - Discharge Summary Sheet [facility] - Otitis Media, Adult [facility] Forms: - Medication Reconciliation Form [facility] - Thank You Letter [facility] - Antibiotic Education [facility] - Prescription Opioid Use [facility] Prescriptions: - cefdinir 300 mg Oral capsule - take 1 capsule by ORAL route every 12 hours; 20 capsule; Refills: 0, Product [facility] Selection Permitted Signatures: Dispatcher [employer] Dary Christianson, SEAN-C CUSTOMER ENGINEERING SPECIALIST-Giovanni Saez PA PA jmm Jeremy Heredia, RN RN jl7 Liane Olsen RN RN ap3 Kellie Pace, RN RN jh5 Corrections: (The following items were deleted from the chart) 12:15 10:43 Accucheck ordered. [facility] 12:15 10:43 Cardiac monitoring ordered. [facility] 12:15 10:43 EKG - Nurse/Tech ordered. [facility] 12:15 10:43 IV Saline Lock - Large Bore ordered. [facility] 12:15 10:43 Oxygen Per Protocol ordered. [facility] 12:36 10:44 BLOOD CULTURE*+BA.LAB.BRZ ordered. EDSC EDMS 12:36 10:44 COMPREHENSIVE METABOLIC PANEL+C.LAB.BRZ ordered. EDSC EDMS 12:36 10:44 LACTATE+C.LAB.BRZ ordered. EDSC EDMS 12:36 10:44 AMMONIA+C.LAB.BRZ ordered. EDSC EDMS 12:37 10:44 CBC+H.LAB.BRZ ordered. EDSC EDMS 12:37 10:44 PROTIME (+INR)+COAG.LAB.BRZ ordered. EDMS EDMS 12:37 10:44 PTT, ACTIVATED+COAG.LAB.BRZ ordered. EDMS EDMS 12:37 10:44 SARS-COV-2 Antigen Rapid+I.LAB.BRZ ordered. EDMS EDMS 12:52 10:44 Chest Single View+RAD.RAD.BRZ ordered. EDMS EDMS
--- NOTE | 2021-12-02 14:31 | ER ---
Nurse's Notes [facility] Name: Herman Sun Age: 65 yrs Sex: Male : 1955 Arrival Date: 12/02/2021 Time: 09:41 Bed 27 Private MD: Diagnosis: Acute serous otitis media, right ear Presentation: 12/02 10:33 Chief complaint: Patient states: Fatigue x 3 days, hx of colorectal cancer, colostomy, jl7 recently started have BM rectally but pt is not in a position to do surgery due to hx. Coronavirus screen: At this time, the client does not indicate any symptoms associated with coronavirus-19. Ebola Screen: No symptoms or risks identified at this time. Initial Sepsis Screen: Does the patient meet any 2 criteria? No. Patient's initial sepsis screen is negative. Does the patient have a suspected source of infection? No. Patient's initial sepsis screen is negative. Risk Assessment: Do you want to hurt yourself or someone else? Patient reports no desire to harm self or others. Onset of symptoms was November 29, 2021. Care prior to arrival: None. 10:33 Method Of Arrival: Ambulatory jl7 10:33 Acuity: SANJANA 3 jl7 Triage Assessment: 10:33 General: Appears in no apparent distress. uncomfortable, Behavior is calm, cooperative, jl7 appropriate for age. Pain: Complains of pain in generalized. Historical: - Allergies: 10:27 Marijuana/Cannabinoid; jh5 10:27 NKDA; jh5 - Home Meds: 10:27 Magnesium Oxide Oral 2400 mg daily [Active]; tamsulosin 0.4 mg Oral cap 1 cap once jh5 daily [Active]; Protonix 40 mg Oral TbEC 1 tab once daily [Active]; Glipizide Oral [Active]; levothyroxine oral [Active]; Allopurinol Oral [Active]; amiloride 5 mg Oral tab [Active]; Lasix Oral [Active]; morphine 30 mg Oral TbER [Active]; gabapentin 300 mg Oral cap [Active]; Hydroxyzine Oral [Active]; Lactulose Oral [Active]; Myrbetriq Oral [Active]; Jemperli intravenous [Active]; chemo [Active]; - PMHx: 10:27 chronic kidney disease; cirrhosis of liver; colorectal cancer; colostomy; DM; HTN; jh5 Hypothyroidism; Kidney stones; recurrent uti; - Immunization history:: Client reports receiving the 2nd dose of the Covid vaccine. - Social history:: Smoking status: Patient reports the use of cigarette tobacco products, cigars. Screenin:41 Abuse screen: Denies threats or abuse. Nutritional screening: No deficits noted. ap3 Tuberculosis screening: No symptoms or risk factors identified. 13:43 Fall Risk None identified. ap3 Assessment: 13:42 General: Appears ill, Behavior is calm, cooperative, appropriate for age. Pain: Denies ap3 pain. Neuro: Level of Consciousness is awake, alert, obeys commands, Oriented to person, place, time, situation, Reports weakness. Cardiovascular: Patient's skin is warm and dry. Respiratory: Airway is patent Respiratory effort is even, unlabored, Respiratory pattern is regular, symmetrical. GI: Colostomy site is clean and dry. Ostomy appliance is intact. Vital Signs: 10:33 BP 125 / 70; Pulse 103; Resp 17; Temp 98.4; Pulse Ox 95% ; Weight 123.38 kg; Height 5 jl7 ft. 11 in. (180.34 cm); 13:50 BP 122 / 66; Pulse 81; Pulse Ox 99% on R/A; ap3 10:33 Body Mass Index 37.94 (123.38 kg, 180.34 cm) jl7 ED Course: 09:41 Patient arrived in ED. am2 10:33 Arm band placed on right wrist. jl7 10:36 Triage completed. jl7 11:18 Giovanni Mansfield PA is PHCP. [facility] 11:18 Lenny Lima MD is Attending Physician. [facility] 11:22 Giovanni Mansfield PA is PHCP. [facility] 11:22 Lenny Lima MD is Attending Physician. [facility] 12:10 Liane Olsen, DEV is Primary Nurse. ap3 13:41 Patient has correct armband on for positive identification. Bed in low position. Call ap3 light in reach. Side rails up X2. Adult w/ patient. Pulse ox on. NIBP on. Door closed. Noise minimized. 14:42 No provider procedures requiring assistance completed. IV discontinued, intact, jh5 bleeding controlled, No redness/swelling at site. Pressure dressing applied. Administered Medications: 13:11 Drug: Magnesium Sulfate 2 grams Route: IVPB; Infused Over: 2 hrs; Site: left [facility] antecubital; 14:17 Follow up: IV Status: Completed infusion ap3 14:30 Drug: Rocephin (cefTRIAXone) 1 grams Route: IV; Rate: calculated rate; Site: left 3 antecubital; Medication: 13:42 VIS not applicable for this client. ap3 Outcome: 14:30 Discharge ordered by MD. liz 14:42 Discharged to home ambulatory. [facility] 14:42 Condition: good 14:42 Discharge instructions given to patient, family. 14:43 Patient left the ED. [facility] Signatures: Giovanni Mansfield PA PA jmm Leal, Jahala, RN RN jl7 Liane Landrum Amanda, RN RN ap3 Kellie Pace RN RN jh5 Corrections: (The following items were deleted from the chart) 10:36 10:31 Chief complaint: Spenser alvarenga
[2021-12-02 19:58] VITALS: TEMP 98.4
[2021-12-02 20:00] VITALS: BP 122/66; O2SAT 99
== END 2021-12-02 14:43 | disposition home or self-care (01) ==
LOC: ER 09:39
DX: H65.01 Acute serous otitis media, right ear (principal); E11.22 Type 2 diabetes mellitus with diabetic chronic kidney disease; I12.9 Hypertensive chronic kidney disease with stage 1 through stage 4 chronic kidney disease, or unspecified chronic kidney disease; N18.9 Chronic kidney disease, unspecified; F17.290 Nicotine dependence, other tobacco product, uncomplicated
CPT/HCPCS: 80048; 36415; 83735; J3475; 96365; 96375; 99283

== ENCOUNTER 2022-05-30 21:59 | Emergency (ER) | payer OTHER ==
[2022-05-30] MEDS ORDERED: NA CHLORIDE 0.9% 2,000 ML ONE (23:31)
[2022-05-30 23:50] LABS: Absolute Lymphocytes (CBC) 0.3 K/uL (0.7-4.9); Hematocrit 24.1 % (39.6-49.0); Lymphocytes % 2.7 % (15.3-44.8); MCV 89.7 fL (80-100); MPV 8.9 fL (7.6-11.3); Protime INR 1.75; RBC Red Blood Cell Count 2.69 M/uL (4.33-5.43)
[2022-05-31 00:24] LABS: Albumin 2.1 g/dL (3.4-5.0); Bilirubin Direct 1.1 mg/dL (0-0.2); Bilirubin Total 1.4 mg/dL (0.2-1.0); Magnesium 3.2 mg/dL (1.6-2.4); Potassium 4.8 mmol/L (3.5-5.1); Protein, Total 6.2 g/dL (6.4-8.2); Troponin High Sensitivity 7.1 pg/mL (<58.9)
[2022-05-31 00:29] LABS: Anisocytosis 1+; Blood Morphology Comment NOTED (NOT SEEN); Platelet Estimate ADEQ; White Blood Cell Scan OK (OK)
[2022-05-31] MEDS ORDERED: NA CHLORIDE 0.9% 250 ML ONE (00:50)
[2022-05-31] MEDS ORDERED: NA CHLORIDE 0.9% 2,000 ML ONE (00:50)
[2022-05-31] MEDS ORDERED: VANCOMYCIN 1 GM/VIAL ONE (00:50)
[2022-05-31] MEDS ORDERED: PIPERACIL/TAZO 2.25 GM VIAL IV ONE (00:50)
[2022-05-31] MEDS ORDERED: NA CHLORIDE 0.9% 100 ML ONE (00:51)
[2022-05-31 05:34] LABS: Urine Blood Negative (Negative); Urine Glucose Negative (Negative); Urine Protein Negative (Negative); Urine pH 5.5 (5.0-7.0)
[2022-05-31 06:12] VITALS: TEMP 98.1
[2022-05-31 06:13] VITALS: BP 133/62; O2SAT 100
--- NOTE | 2022-06-01 13:05 | EKG ---
Test Date: 2022-05-30 Test Time: 23:55:05 Grants Officer: JEANA MEASUREMENT RESULTS: Intervals: Rate: 87 MA: QRSD: 160 QT: 452 QTc: 543 Barrow: P: MA: QRS: 128 T: 23 INTERPRETIVE STATEMENTS: Atrial fibrillation with a competing junctional pacemaker Right bundle branch block Left posterior fascicular block Bifascicular block Abnormal ECG Compared to ECG 10/31/2021 10:38:27 Left posterior fascicular block now present Sinus rhythm no longer present Left anterior fascicular block no longer present Myocardial infarct finding no longer present Bifascicular block still present Electronically Signed On 06-01-22 13:03:03 CDT by Kvng Allen
--- NOTE | 2022-06-01 13:54 | RAD REPORT ---
EXAM DESCRIPTION: ADDENDUM #1 THIS REPORT CONTAINS FINDINGS THAT MAY BE CRITICAL TO PATIENT CARE: The findings were verbally discu ssed via telephone conference with Dr. Lenny Lima by Dr. Gary Fox on 05/31/2022 1:37 AM T .The results were acknowledged and understood. The patient has a history of known rectal cancer. The patient also has a known history of fistulous c onnection between the small bowel and the rectal mass. The small bowel loops to the rectal mass is ag ain noted to be dilated and fluid-filled. The more proximal small bowel is more normal in caliber. Electronically signed by: Rosa Fox MD 05/31/2022 1:37 AM [facility] End of Addendum EXAM: CT Abdomen and Pelvis Without Intravenous Contrast CLINICAL HISTORY: The patient is 66 years old and is Male; weakness, rectal pain TECHNIQUE: Axial computed tomography images of the abdomen and pelvis without intravenous contrast. Sagittal and coronal reformatted images were created and reviewed. This CT exam was performed usi ng one or more of the following dose reduction techniques: automated exposure control, adjustment o f the mA and/or kV according to patient size, and/or use of iterative reconstruction technique. COMPARISON: No relevant prior studies available. FINDINGS: LUNG BASES: Multiple pulmonary nodules within the lung bases are noted, the largest of w hich measures approximately 1.4 cm in the left lower lobe. MEDIASTINUM: A moderate hiatal hernia is present. ABDOMEN: LIVER: The liver is cirrhotic with a nodular contour. GALLBLADDER AND BILE DUCTS: The gallbladder is contracted. PANCREAS: Unremarkable. No ductal dilation. SPLEEN: The spleen is enlarged. ADRENALS: Unremarkable. No mass. KIDNEYS AND URETERS: Bilateral nonspecific perinephric stranding is present. No obstructing noreen l or ureteral calculus is seen. There is no hydronephrosis or hydroureter of either kidney. STOMACH AND BOWEL: Evidence of a Dimitri fundoplication is noted. The stomach is significantly distended with food contents. The proximal small bowel is decompressed. A dilated fluid-filled small bowel loops extending into the pelvis is present. A definite transition is not seen and no dilated lo ops of bowel appears to be here into the mass within the pelvis. The remainder of the small bowel is normal in caliber. Stool is present throughout colon. Left lower quadrant colostomy is present. Cir cumferential heterogeneous masslike mucosal thickening with surrounding inflammation involving the re ctosigmoid colon is present. Associated destruction involving the sacrum is present. PELVIS: APPENDIX: No findings to suggest acute appendicitis. BLADDER: Unremarkable. No stones. REPRODUCTIVE: Unremarkable as visualized. ABDOMEN and PELVIS: INTRAPERITONEAL SPACE: Unremarkable. No free air. No significant fluid collection. BONES/JOINTS: No acute fracture. The majority of the sacral elements demonstrate sclerosis and l ucency. Destruction of the majority of the sacrum is noted. SOFT TISSUES: The soft tissues are normal. VASCULATURE: Unremarkable. No abdominal aortic aneurysm. LYMPH NODES: Unremarkable. No enlarged lymph nodes. OTHER FINDINGS: Evidence of a TIPS is noted. IMPRESSION: 1. Heterogeneous mass circumferentially involving the rectum with extension into the s acral as described. Findings are consistent with malignancy. 2. Dilated small bowel loops extending into the pelvis which appears to be obstructed at the level of the rectal mass. 3. Innumerable pulmonary nodules in the visualized lung bases most suggestive of metastatic disease . Recommend prompt non-contrast Chest CT for further evaluation. Electronically signed by: Rosa Fox MD 05/31/2022 1:29 AM CHEMICAL TECHNICIAN Due to temporary technical issues with the PACS/Fluency reporting system, reports are being signed by the in house radiologists without review as a courtesy to insure prompt reporting. The interpreting radiologist is fully responsible for the content of the report.
--- NOTE | 2022-06-01 14:02 | RAD REPORT ---
EXAM DESCRIPTION: XR Chest, 1 View CLINICAL HISTORY: The patient is 66 years old and is Male; COUGH TECHNIQUE: Frontal view of the chest. COMPARISON: No relevant prior studies available. FINDINGS: LUNGS: Suggestion of a 1 cm left upper lobe pulmonary nodule is noted. The lungs are oth erwise clear. PLEURAL SPACE: Unremarkable. No pneumothorax. HEART: The cardiac silhouette is prominent. MEDIASTINUM: Unremarkable. BONES/JOINTS: Unremarkable. TUBES, LINES AND DEVICES: A left chest port is present with the tip in the SVC. UPPER ABDOMEN: Unremarkable as visualized. IMPRESSION: Suggestion of a left upper lobe pulmonary nodule which may be calcified. However, correl ation prior imaging and/or follow-up with a CT of the chest should be considered. Electronically signed by: Rosa Fox MD 05/30/2022 11:28 PM QUALITY CONTROL PROJECTIONIST Due to temporary technical issues with the PACS/Fluency reporting system, reports are being signed by the in house radiologists without review as a courtesy to insure prompt reporting. The interpreting radiologist is fully responsible for the content of the report.
--- NOTE | 2022-06-12 16:26 | ER ---
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 Coronavirus screen: Vaccine status: Patient reports receiving the 2nd dose of the covid vaccine. At this time, the client does not indicate any symptoms associated with coronavirus-19. Ebola Screen: No symptoms or risks identified at this time. Initial Sepsis Screen: Does the patient meet any 2 criteria? No. Patient's initial sepsis screen is negative. Does the patient have a suspected source of infection? No. Patient's initial sepsis screen is negative. Risk Assessment: Do you want to hurt yourself or someone else? Patient reports no desire to harm self or others. Onset of symptoms was May 30, 2022. 23:12 Method Of Arrival: EMS: [facility] ll3 23:12 Acuity: SANJANA 3 ll3 Triage Assessment: 23:23 General: Appears uncomfortable, Behavior is calm, cooperative. Pain: Complains of pain ll3 in gluteal cleft Pain currently is 9 out of 10 on a pain scale. Neuro: Level of Consciousness is awake, alert, obeys commands, Oriented to person, place, time, situation. Respiratory: Respiratory effort is even, unlabored, Respiratory pattern is regular, symmetrical. GI: Colostomy site is clean and dry. Ostomy appliance is intact. Derm: Skin is pink, warm \\T\\ dry. Historical: - Allergies: 23:17 Marijuana/Cannabinoid; ll3 23:17 NKDA; ll3 - Home Meds: 23:17 allopurinol 100 mg oral tablet daily [Active]; gabapentin 300 mg Oral cap daily ll3 [Active]; glipizide 5 mg oral tablet [Active]; Lactulose 30 cc Oral [Active]; levothyroxine oral [Active]; tamsulosin 0.4 mg Oral cap 1 cap once daily [Active]; Protonix 40 mg Oral TbEC 1 tab once daily [Active]; Myrbetriq 50 mg oral Tablet, Extended Release 24 hr [Active]; morphine 30 mg Oral TbER [Active]; amiloride 5 mg Oral tab [Active]; Xifaxan 550 mg oral tablet 2 times per day [Active]; Nitrofurantoin Macrocrystal Oral [Active]; - PMHx: 23:17 chronic kidney disease; cirrhosis of liver; colorectal cancer; colostomy; DM; HTN; ll3 Hypothyroidism; Kidney stones; recurrent UTI; - PSHx: 23:17 Colostomy; ll3 - Immunization history:: Client reports receiving the 2nd dose of the Covid vaccine. - Social history:: Smoking status: Patient reports use of chewing tobacco. - Family history:: not pertinent. Screenin/12 01:25 [facility] ED Fall Risk Assessment (Adult) History of falling in the last 3 months, ll3 including since admission Yes- single mechanical fall (1 pt) Confusion or Disorientation No (0 pts) Intoxicated or Sedated No (0 pts) Impaired Gait Yes (1 pt) Mobility Assist Device Used No (0 pt) Altered Elimination Yes (1 pt) Score/Fall Risk Level 3 or more points = High Risk Oriented to surroundings, Maintained a safe environment, Educated pt \\T\\ family on fall prevention, incl call for assistance when getting out of bed. Abuse screen: Denies threats or abuse. Denies injuries from another. Nutritional screening: No deficits noted. Tuberculosis screening: No symptoms or risk factors identified. Assessment: 05/30 23:12 General: See triage assessment. ll3 05/31 01:26 Reassessment: No changes from previously documented assessment. Patient and/or family ll3 updated on plan of care and expected duration. Pain level reassessed. Patient is alert, oriented x 3, equal unlabored respirations, skin warm/dry/pink. Vital Signs: 05/30 23:12 BP 115 / 54; Pulse 94; Resp 17; Temp 97.6(O); Pulse Ox 89% on R/A; Weight 97.98 kg (R); ll3 Height 5 ft. 11 in. (R); Pain 9/10; 05/31 01:24 BP 106 / 60; Pulse 89; Resp 20; Pulse Ox 99% on R/A; ll3 03:00 BP 110 / 55; Pulse 90; Resp 18; Pulse Ox 96% ; ll3 04:00 BP 122 / 58; Pulse 97; Resp 18; Pulse Ox 97% on R/A; ll3 05:00 BP 142 / 65; Pulse 92; Resp 18; Pulse Ox 96% on R/A; ll3 05/30 23:12 Body Mass Index 30.13 (97.98 kg, 180.34 cm) ll3 05/30 23:12 Pain Scale: Adult ll3 ED Course: 05/30 22:15 Patient arrived in ED. wm 22:24 Lenny Lima MD is Attending Physician. chante 23:17 Triage completed. ll3 23:20 XRAY Chest (1 view) In Process Unspecified. EDMS 23:24 Arm band placed on Patient placed in an exam room, on a stretcher, on pulse oximetry. ll3 05/31 00:58 Abdomen In Process Unspecified. EDMS 01:09 Trinidad cath inserted, using sterile technique, 16 Fr., by va, balloon inflated, to ll3 gravity drainage, clamped. 01:17 Dr. Lima initiated transfer to [facility], asked that we be patient and that maybe they would have a bed available by 0700. 01:25 Patient has correct armband on for positive identification. Bed in low position. Call [facility] light in reach. Side rails up X 1. Adult w/ patient. 01:50 Dr. Lima initiated transfer to [facility], spoke with Kadie Wong. wm 03:18 Pt accepted for transfer by Dr. Rogers at [facility] \\\\ [id number]. wm 05:47 No provider procedures requiring assistance completed. Patient transferred, IV remains vc1 in place. Administered Medications: 05/30 23:41 Drug: NS 0.9% IV 1000 ml Route: IV; Rate: 1 bolus; Site: left antecubital; ll3 05/31 01:08 Drug: NS 0.9% IV 1000 ml Route: IV; Rate: 1 bolus; Site: left antecubital; ll3 01:08 Drug: NS 0.9% IV 1000 ml Route: IV; Rate: 1 bolus; Site: left antecubital; ll3 04:14 Drug: Piperacillin-Tazobactam IVPB 2.25 grams Route: IVPB; Infused Over: 60 mins; Site: ll3 right antecubital; 04:14 Drug: vancoMYCIN IVPB 1 grams Route: IVPB; Infused Over: 2 hrs; Site: left antecubital; ll3 04:20 Drug: NS 0.9% IV 1000 ml Route: IV; Rate: 1 bolus; Site: left antecubital; ll3 Medication: 01:25 VIS not applicable for this client. ll3 Outcome: 01:26 ER care complete, transfer ordered by MD. sharif 05:47 Transferred by ground EMS to [facility], Transfer form vc1 completed. X-rays sent w/ patient. 05:47 Condition: good 05:47 Instructed on the need for admit. 05:47 Patient left the ED. vc1 Signatures: Dispatcher [employer] EDLenny Jorge MD MD cha Marsh, Wendy wm Loubet, Lynsea RN RN ll3 Lora Hastings RN RN vc1
--- NOTE | 2022-06-12 16:26 | EDPHYS ---
Physician Documentation [facility] Name: Herman Sun Age: 66 yrs Sex: Male : 1955 Arrival Date: 05/30/2022 Time: 22:15 Bed 8 Private MD: ED Physician Lenny Lima HPI: 05/31 01:09 This 66 yrs old Male presents to ER via EMS with complaints of Weakness, Low chante Blood Pressure. 01:09 The patient presents to the emergency department with weakness of the entire body, chante generalized weakness. Onset: The symptoms/episode began/occurred 6 day(s) ago. Context: occurred at home. Associated signs and symptoms: Pertinent positives: dizziness, near-syncope. Severity of symptoms: At their worst the symptoms were mild moderate in the emergency department the symptoms are unchanged. Patient's baseline: Neuro: alert and fully oriented. The patient has not experienced similar symptoms in the past, The patient has experienced similar episodes in the past, multiple times. Historical: - Allergies: 05/30 23:17 Marijuana/Cannabinoid; ll3 23:17 NKDA; ll3 - Home Meds: 23:17 allopurinol 100 mg oral tablet daily [Active]; gabapentin 300 mg Oral cap daily ll3 [Active]; glipizide 5 mg oral tablet [Active]; Lactulose 30 cc Oral [Active]; levothyroxine oral [Active]; tamsulosin 0.4 mg Oral cap 1 cap once daily [Active]; Protonix 40 mg Oral TbEC 1 tab once daily [Active]; Myrbetriq 50 mg oral Tablet, Extended Release 24 hr [Active]; morphine 30 mg Oral TbER [Active]; amiloride 5 mg Oral tab [Active]; Xifaxan 550 mg oral tablet 2 times per day [Active]; Nitrofurantoin Macrocrystal Oral [Active]; - PMHx: 23:17 chronic kidney disease; cirrhosis of liver; colorectal cancer; colostomy; DM; HTN; ll3 Hypothyroidism; Kidney stones; recurrent UTI; - PSHx: 23:17 Colostomy; ll3 - Immunization history:: Client reports receiving the 2nd dose of the Covid vaccine. - Social history:: Smoking status: Patient reports use of chewing tobacco. - Family history:: not pertinent. ROS: 05/31 01:09 Constitutional: Negative for fever, chills, and weight loss, Eyes: Negative for injury, chante pain, redness, and discharge, ENT: Negative for injury, pain, and discharge, Neck: Negative for injury, pain, and swelling, Cardiovascular: Negative for chest pain, palpitations, and edema, Respiratory: Negative for shortness of breath, cough, wheezing, and pleuritic chest pain, Back: Negative for injury and pain, : Negative for injury, bleeding, discharge, and swelling, MS/Extremity: Negative for injury and deformity, Neuro: Negative for headache, weakness, numbness, tingling, and seizure, Psych: Negative for depression, anxiety, suicide ideation, homicidal ideation, and hallucinations, Allergy/Immunology: Negative for hives, rash, and allergies, Endocrine: Negative for neck swelling, polydipsia, polyuria, polyphagia, and marked weight changes, Hematologic/Lymphatic: Negative for swollen nodes, abnormal bleeding, and unusual bruising. Abdomen/GI: Positive for abdominal distension, of the right upper quadrant, left upper quadrant, right lower quadrant and left lower quadrant. Skin: Positive for poor turgor. Exam: 01:09 Constitutional: This is a well developed, well nourished patient who is awake, alert, chante and in no acute distress. Head/Face: Normocephalic, atraumatic. Eyes: Pupils equal round and reactive to light, extra-ocular motions intact. Lids and lashes normal. Conjunctiva and sclera are non-icteric and not injected. Cornea within normal limits. Periorbital areas with no swelling, redness, or edema. Neck: Trachea midline, no thyromegaly or masses palpated, and no cervical lymphadenopathy. Supple, full range of motion without nuchal rigidity, or vertebral point tenderness. No Meningismus. Chest/axilla: Normal chest wall appearance and motion. Nontender with no deformity. No lesions are appreciated. Cardiovascular: Regular rate and rhythm with a normal S1 and S2. No gallops, murmurs, or rubs. Normal PMI, no JVD. No pulse deficits. Respiratory: Lungs have equal breath sounds bilaterally, clear to auscultation and percussion. No rales, rhonchi or wheezes noted. No increased work of breathing, no retractions or nasal flaring. Back: No spinal tenderness. No costovertebral tenderness. Full range of motion. Male : Normal genitalia with no discharge or lesions. Skin: Warm, dry with normal turgor. Normal color with no rashes, no lesions, and no evidence of cellulitis. MS/ Extremity: Pulses equal, no cyanosis. Neurovascular intact. Full, normal range of motion. Neuro: Awake and alert, GCS 15, oriented to person, place, time, and situation. Cranial nerves II-XII grossly intact. Motor strength 5/5 in all extremities. Sensory grossly intact. Cerebellar exam normal. Normal gait. Psych: Awake, alert, with orientation to person, place and time. Behavior, mood, and affect are within normal limits. 01:09 ENT: Mouth: Oral mucosa: dry, Gums: pink, Posterior pharynx: no acute changes, Airway: normal, no evidence of obstruction, Tonsils: are normal in appearance, Uvula: normal, midline, non-edematous, no erythema, swelling, is not appreciated, exudate, is not appreciated. 01:09 ECG was reviewed by the Attending Physician. Vital Signs: 05/30 23:12 BP 115 / 54; Pulse 94; Resp 17; Temp 97.6(O); Pulse Ox 89% on R/A; Weight 97.98 kg (R); ll3 Height 5 ft. 11 in. (R); Pain 11/29; 05/31 01:24 BP 106 / 60; Pulse 89; Resp 20; Pulse Ox 99% on R/A; ll3 03:00 BP 110 / 55; Pulse 90; Resp 18; Pulse Ox 96% ; ll3 04:00 BP 122 / 58; Pulse 97; Resp 18; Pulse Ox 97% on R/A; ll3 05:00 BP 142 / 65; Pulse 92; Resp 18; Pulse Ox 96% on R/A; ll3 05/30 23:12 Body Mass Index 30.13 (97.98 kg, 180.34 cm) ll3 05/30 23:12 Pain Scale: Adult ll3 MDM: 05/30 22:27 Patient medically screened. [facility] 05/31 03:06 Data reviewed: vital signs, nurses notes, old medical records, lab test result(s), EKG, chante radiologic studies. Consideration of Admission/Observation Patient was admitted/placed on observation. Escalation of care including admission/observation considered. I considered the following discharge prescriptions or medication management in the emergency department Medications were administered in the Emergency Department. See MAR. Historians other than the Patient: Family Member: . Care significantly affected by the following chronic conditions: Chronic Kidney Disease, Liver Disease. Counseling: I had a detailed discussion with the patient and/or guardian regarding: the historical points, exam findings, and any diagnostic results supporting the discharge/admit diagnosis, lab results, radiology results, the need to transfer to another facility, for higher level of care, [facility] does not immediately have the required specialist. 05/30 22:26 Order name: Basic Metabolic Panel; Complete Time: 00:41 [facility] 05/30 22:26 Order name: CBC with Diff; Complete Time: 00:41 [facility] 05/30 22:26 Order name: LFT's; Complete Time: 00:41 [facility] 05/30 22:26 Order name: Magnesium; Complete Time: 00:41 [facility] 05/30 22:26 Order name: NT PRO-BNP; Complete Time: 00:41 [facility] 05/30 22:26 Order name: PT-INR; Complete Time: 00:41 [facility] 05/30 22:26 Order name: Troponin HS; Complete Time: 00:41 [facility] 05/30 22:26 Order name: Lipase; Complete Time: 00:41 [facility] 05/30 22:26 Order name: Lactate w/ 2H reflex if indic.; Complete Time: 00:41 [facility] 05/30 22:26 Order name: AMMONIA; Complete Time: 00:41 [facility] 05/30 23:53 Order name: CBC Smear Scan; Complete Time: 00:41 [facility] 05/31 00:41 Order name: Blood Culture Adult (2) [facility] 05/31 01:20 Order name: SARS-COV-2 RT PCR 05/31 05:34 Order name: Urine Dipstick-Ancillary [facility] 05/30 22:26 Order name: XRAY Chest (1 view) [facility] 05/31 00:33 Order name: Abdomen [facility] 05/30 22:26 Order name: EKG; Complete Time: 22:27 [facility] 05/30 22:26 Order name: Cardiac monitoring; Complete Time: 23:57 [facility] 05/30 22:26 Order name: EKG - Nurse/Tech; Complete Time: 23:57 [facility] 05/30 22:26 Order name: IV Saline Lock; Complete Time: 23:24 [facility] 05/30 22:26 Order name: Labs collected and sent; Complete Time: 23:41 [facility] 05/30 22:26 Order name: O2 Per Protocol; Complete Time: 23:24 [facility] 05/30 22:26 Order name: O2 Sat Monitoring; Complete Time: 23:24 chante 05/30 22:26 Order name: Urine Dipstick-Ancillary (obtain specimen); Complete Time: 05:45 [facility] 05/31 00:41 Order name: [place]; Complete Time: 01:08 [facility] EC: Rate is 87 beats/min. Rhythm is regular. QRS [place] is Normal. ME interval is normal. QRS chante interval is normal. QT interval is normal. No Q waves. T waves are Normal. No ST changes noted. Clinical impression: NSR w/ Non-specific ST/T Changes and No evidence of ischemia. Interpreted by me. Reviewed by me. Administered Medications: 05/30 23:41 Drug: NS 0.9% IV 1000 ml Route: IV; Rate: 1 bolus; Site: left antecubital; ll3 05/31 01:08 Drug: NS 0.9% IV 1000 ml Route: IV; Rate: 1 bolus; Site: left antecubital; ll3 01:08 Drug: NS 0.9% IV 1000 ml Route: IV; Rate: 1 bolus; Site: left antecubital; ll3 04:14 Drug: Piperacillin-Tazobactam IVPB 2.25 grams Route: IVPB; Infused Over: 60 mins; Site: ll3 right antecubital; 04:14 Drug: vancoMYCIN IVPB 1 grams Route: IVPB; Infused Over: 2 hrs; Site: left antecubital; ll3 04:20 Drug: NS 0.9% IV 1000 ml Route: IV; Rate: 1 bolus; Site: left antecubital; ll3 Disposition Summary: 05/31/22 01:26 Transfer Ordered Transfer Location: 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 [facility] 05/31 01:50 01:26 to [facility], [facility] , icu chante chante 05:47 01:50 to [facility], [facility] , icu chante vc1
== END 2022-05-31 05:47 | disposition short-term general hospital (02) ==
LOC: ER 21:59
DX: E11.22 Type 2 diabetes mellitus with diabetic chronic kidney disease (principal); I12.9 Hypertensive chronic kidney disease with stage 1 through stage 4 chronic kidney disease, or unspecified chronic kidney disease; N18.9 Chronic kidney disease, unspecified; N17.9 Acute kidney failure, unspecified; A41.9 Sepsis, unspecified organism; R65.21 Severe sepsis with septic shock; K74.60 Unspecified cirrhosis of liver; K63.2 Fistula of intestine; E86.0 Dehydration; D63.1 Anemia in chronic kidney disease; E87.1 Hypo-osmolality and hyponatremia; Z93.3 Colostomy status; F17.220 Nicotine dependence, chewing tobacco, uncomplicated; Z20.822 Contact with and (suspected) exposure to COVID-19; Z88.8 Allergy status to other drugs, medicaments and biological substances
CPT/HCPCS: 93005; 87040 ×2; 85025; 80048; 36415 ×2; 82140; 83735; 85610; 80076; 83605; 81003; 84484; 83690; 83880; 74176; 71045; 51702; 99285; U0003; J2543; J7050; J7030 ×2